=== PATIENT | female | born 1975 | race Caucasian/White ===

== ENCOUNTER → 2022-02-18 | Outpatient (CLI) | payer OTHER | END | disposition home or self-care (01) | LOC: RAD 09:30 | PROVIDERS: ATTEND Family Medicine | DX: M19.072 Primary osteoarthritis, left ankle and foot (principal); M20.12 Hallux valgus (acquired), left foot; M25.872 Other specified joint disorders, left ankle and foot ==

== ENCOUNTER 2023-01-01 07:48 | Emergency (ER) | payer BC ==
[~2023-01-01] VITALS: Ht 160 cm; Wt 57.6 kg
[2023-01-01 07:55] VITALS: BP 142/55
[2023-01-01 08:29] LABS: BETA-HCG, QUANT < 3.0 mIU/mL (3-10)
== END 2023-01-01 09:10 | disposition home or self-care (01) ==
LOC: ED 07:48
PROVIDERS: Emergency Medicine
DX: R00.1 Bradycardia, unspecified (principal); F32.A Depression, unspecified; Z90.49 Acquired absence of other specified parts of digestive tract; Z90.710 Acquired absence of both cervix and uterus; F12.90 Cannabis use, unspecified, uncomplicated

== ENCOUNTER → 2023-01-01 | Outpatient (CLI) | payer BC ==
[~2023-01-01] MED LIST: WELLBUTRIN SR100 MG PO
[2023-01-01 07:32] LABS: BASO % 0.9 % (0.0-1.0); EOS # 0.1 10*3/uL (0.0-0.4); EOS % 2.7 % (1.0-4.0); HEMATOCRIT 39.9 % (37.0-47.0); LYMPH # 1.1 10*3/uL (1.3-4.4); LYMPH % 32.2 % (27.0-41.0); MEAN CELL VOLUME 99.5 fl (81.0-99.0); MEAN CORPUSCULAR HGB 32.4 pg (27.0-31.0); MEAN CORPUSCULAR HGB CONC 32.6 g/dl (33.0-37.0); MEAN PLATELET VOLUME 10.2 fl (9.6-12.3); MONO # 0.3 10*3/uL (0.1-1.0); NEUT # 1.8 10*3/uL (2.3-7.9); NEUT % 54.9 % (47.0-73.0); PLATELET COUNT AUTOMATED 225 10*3/uL (130-400); RED BLOOD COUNT 4.01 10*6/uL (4.10-5.10); RED CELL DISTRI WIDTH 12.3 % (0-14.5); WHITE BLOOD COUNT 3.3 10*3/uL (4.8-10.8)
[2023-01-01 07:56] LABS: ALKALINE PHOSPHATASE 65 U/L (46-116); BUN 15 mg/dl (9-23); CHLORIDE 106 mmol/L (98-107); CHOLESTEROL 166 mg/dL (<200); LDL CHOLESTEROL 85 mg/dL (9-159); POTASSIUM 4.3 mmol/L (3.4-5.1); SGPT/ALT 18 U/L (10-49); TOTAL PROTEIN 7.4 gm/dL (6.0-8.0); TRIGLYCERIDES 74 mg/dl (<150)
[2023-01-07 01:05] LABS: IGG P18 AB Present (.); IGG P23 AB Absent (.); IGG P28 AB Absent (.); IGG P30 AB Absent (.); IGG P39 AB Present (.); IGG P41 AB Present (.); IGG P45 AB Absent (.); IGG P58 AB Present (.); IGG P63 AB Absent (.); IGG P66 AB Absent (.); IGM P23 AB Present (.); IGM P39 AB Present (.); IGM P41 AB Present (.); LYME IGG WB INTERPRETATION Negative (.); LYME IGM WB INTERPRETATION Positive (.)
== END | disposition home or self-care (01) ==
LOC: LAB 07:08
PROVIDERS: ATTEND Nurse Practitioner Family
DX: Z13.6 Encounter for screening for cardiovascular disorders (principal); Z13.1 Encounter for screening for diabetes mellitus; Z13.29 Encounter for screening for other suspected endocrine disorder; R00.1 Bradycardia, unspecified; E55.9 Vitamin D deficiency, unspecified; R07.9 Chest pain, unspecified; M25.50 Pain in unspecified joint

== ENCOUNTER → 2023-03-04 | Outpatient (CLI) | payer BC ==
[2023-03-04 10:15] LABS: BASO % 0.7 % (0.0-1.0); EOS # 0.1 10*3/uL (0.0-0.4); HEMATOCRIT 40.6 % (37.0-47.0); LYMPH % 32.1 % (27.0-41.0); MEAN CELL VOLUME 95.3 fl (81.0-99.0); MEAN CORPUSCULAR HGB 31.9 pg (27.0-31.0); MEAN CORPUSCULAR HGB CONC 33.5 g/dl (33.0-37.0); MEAN PLATELET VOLUME 9.9 fl (9.6-12.3); MONO # 0.2 10*3/uL (0.1-1.0); NEUT # 1.8 10*3/uL (2.3-7.9); NEUT % 58.2 % (47.0-73.0); PLATELET COUNT AUTOMATED 212 10*3/uL (130-400); RED BLOOD COUNT 4.26 10*6/uL (4.10-5.10); RED CELL DISTRI WIDTH 11.5 % (0-14.5)
[2023-03-04 11:01] LABS: ALKALINE PHOSPHATASE 67 U/L (46-116); BUN 12 mg/dl (9-23); CHLORIDE 105 mmol/L (98-107); POTASSIUM 3.7 mmol/L (3.4-5.1); SGPT/ALT 28 U/L (10-49); TOTAL PROTEIN 7.5 gm/dL (6.0-8.0)
[2023-03-05 12:07] LABS: ANTI-DSDNA ANTIBODIES <1 IU/mL (0-9); ANTI-RNP ANTIBODIES <0.2 AI (0.0-0.9); ANTICHROMATIN ANTIBODIES <0.2 AI (0.0-0.9); ANTISCLERODERMA-70 AB <0.2 AI (0.0-0.9); SJOGREN ANTI-SS-A <0.2 AI (0.0-0.9); SJOREN AB, ANTI-SS-B <0.2 AI (0.0-0.9)
[2023-03-06 16:08] LABS: IGG P18 AB Present (.); IGG P23 AB Present (.); IGG P28 AB Absent (.); IGG P30 AB Absent (.); IGG P39 AB Present (.); IGG P41 AB Present (.); IGG P45 AB Present (.); IGG P58 AB Present (.); IGG P63 AB Absent (.); IGG P66 AB Absent (.); IGM P23 AB Present (.); IGM P39 AB Absent (.); IGM P41 AB Absent (.); LYME IGG WB INTERPRETATION Positive (.); LYME IGM WB INTERPRETATION Negative (.)
== END | disposition home or self-care (01) ==
LOC: LAB 09:52
PROVIDERS: ATTEND Nurse Practitioner Family
DX: Z13.6 Encounter for screening for cardiovascular disorders (principal); Z13.1 Encounter for screening for diabetes mellitus; Z13.29 Encounter for screening for other suspected endocrine disorder; A69.20 Lyme disease, unspecified; M25.50 Pain in unspecified joint

== ENCOUNTER → 2023-03-13 | Outpatient (CLI) | payer BC ==
[2023-03-13 12:23] LABS: BASO % 0.6 % (0.0-1.0); EOS # 0.1 10*3/uL (0.0-0.4); EOS % 1.7 % (1.0-4.0); HEMATOCRIT 40.5 % (37.0-47.0); LYMPH % 20.9 % (27.0-41.0); MEAN CELL VOLUME 95.3 fl (81.0-99.0); MEAN CORPUSCULAR HGB 31.8 pg (27.0-31.0); MEAN CORPUSCULAR HGB CONC 33.3 g/dl (33.0-37.0); MEAN PLATELET VOLUME 10.5 fl (9.6-12.3); MONO # 0.3 10*3/uL (0.1-1.0); MONO % 6.4 % (3.0-9.0); NEUT # 3.3 10*3/uL (2.3-7.9); NEUT % 70.2 % (47.0-73.0); PLATELET COUNT AUTOMATED 211 10*3/uL (130-400); RED BLOOD COUNT 4.25 10*6/uL (4.10-5.10); RED CELL DISTRI WIDTH 11.7 % (0-14.5); WHITE BLOOD COUNT 4.7 10*3/uL (4.8-10.8)
[2023-03-13 12:58] LABS: VITAMIN D, 25-HYDROXY 38.1 ng/mL (30-100)
[2023-03-13 12:59] LABS: ALKALINE PHOSPHATASE 69 U/L (46-116); BUN 14 mg/dl (9-23); CHLORIDE 103 mmol/L (98-107); POTASSIUM 4.4 mmol/L (3.4-5.1); SGPT/ALT 25 U/L (10-49); TOTAL PROTEIN 7.6 gm/dL (6.0-8.0)
== END | disposition home or self-care (01) ==
LOC: LAB 11:35
PROVIDERS: ATTEND Nurse Practitioner Family
DX: Z13.29 Encounter for screening for other suspected endocrine disorder (principal); R53.83 Other fatigue

== ENCOUNTER → 2023-05-14 | Outpatient (CLI) | payer BC | END | disposition home or self-care (01) | LOC: MAMMO 10:01 | PROVIDERS: ATTEND Nurse Practitioner Family | DX: Z12.31 Encounter for screening mammogram for malignant neoplasm of breast (principal); N64.9 Disorder of breast, unspecified ==

== ENCOUNTER → 2023-05-21 | Day surgery (SDC) | payer BC ==
[~2023-05-21] VITALS: Ht 160 cm; Wt 59.0 kg
[~2023-05-21] MED LIST changes: +BENTYL PO; +HYDROCODONE-AC1 EAC1 PO
[2023-05-25] VITALS (7 sets, daily range): BP systolic 92–122; BP diastolic 54–74
== END | disposition home or self-care (01) ==
LOC: SDC 05-20 08:00
PROVIDERS: ATTEND Surgery
DX: Z12.11 Encounter for screening for malignant neoplasm of colon (principal); F32.A Depression, unspecified; K58.9 Irritable bowel syndrome, unspecified; A69.20 Lyme disease, unspecified; K21.9 Gastro-esophageal reflux disease without esophagitis; Z79.899 Other long term (current) drug therapy; Z90.49 Acquired absence of other specified parts of digestive tract; Z90.710 Acquired absence of both cervix and uterus; Z83.3 Family history of diabetes mellitus; Z80.9 Family history of malignant neoplasm, unspecified

== ENCOUNTER → 2023-05-22 | Outpatient (CLI) | payer BC ==
[~2023-05-22] MED LIST changes: -HYDROCODONE-AC1 EAC1 PO
== END | disposition home or self-care (01) ==
LOC: US 00:43
PROVIDERS: ATTEND Surgery
DX: R10.9 Unspecified abdominal pain (principal)

== ENCOUNTER 2023-06-03 20:25 | Emergency (ER) | payer BC ==
[~2023-06-03] VITALS: Ht 160 cm; Wt 59.0 kg
[2023-06-03 20:44] VITALS: BP 122/69
[2023-06-03] MEDS ORDERED: HYDROCODONE-AC1 EAC1 PO (22:44)
== END 2023-06-03 23:30 | disposition home or self-care (01) ==
LOC: ED 20:25
DX: S92.511A Displaced fracture of proximal phalanx of right lesser toe(s), initial encounter for closed fracture (principal); Z79.899 Other long term (current) drug therapy; Z90.49 Acquired absence of other specified parts of digestive tract; Z90.711 Acquired absence of uterus with remaining cervical stump; W22.09XA Striking against other stationary object, initial encounter; Y93.89 Activity, other specified; Y92.89 Other specified places as the place of occurrence of the external cause; Y99.8 Other external cause status

== ENCOUNTER → 2023-12-02 | Outpatient (CLI) | payer BC ==
[~2023-12-02] MED LIST changes: +HYDROCODONE-AC1 EAC1 PO
== END | disposition home or self-care (01) ==
LOC: LAB 16:12
PROVIDERS: ATTEND Nurse Practitioner Family
DX: R30.0 Dysuria (principal)

== ENCOUNTER → 2024-03-16 | Outpatient (CLI) | payer BC ==
[2024-03-16 11:00] LABS: EOS # 0.1 10*3/uL (0.0-0.4); EOS % 2.6 % (1.0-4.0); HEMATOCRIT 40.1 % (37.0-47.0); LYMPH % 32.8 % (27.0-41.0); MEAN CORPUSCULAR HGB 31.5 pg (27.0-31.0); MEAN CORPUSCULAR HGB CONC 33.2 g/dl (33.0-37.0); MEAN PLATELET VOLUME 10.3 fl (9.6-12.3); MONO # 0.2 10*3/uL (0.1-1.0); MONO % 6.2 % (3.0-9.0); NEUT # 1.8 10*3/uL (2.3-7.9); NEUT % 57.4 % (47.0-73.0); PLATELET COUNT AUTOMATED 206 10*3/uL (130-400); RED BLOOD COUNT 4.22 10*6/uL (4.10-5.10); RED CELL DISTRI WIDTH 11.8 % (0-14.5); WHITE BLOOD COUNT 3.1 10*3/uL (4.8-10.8)
[2024-03-16 11:52] LABS: ALKALINE PHOSPHATASE 69 U/L (46-116); BUN 9 mg/dl (9-23); CHLORIDE 103 mmol/L (98-107); POTASSIUM 4.1 mmol/L (3.4-5.1); SGPT/ALT 23 U/L (5-49); TOTAL PROTEIN 7.5 gm/dL (6.0-8.0)
[2024-03-16 11:54] LABS: VITAMIN D, 25-HYDROXY 60.4 ng/mL (30-100)
== END | disposition home or self-care (01) ==
LOC: LAB 10:41
PROVIDERS: ATTEND Nurse Practitioner Family
DX: R53.83 Other fatigue (principal); Z86.19 Personal history of other infectious and parasitic diseases